=== PATIENT | female | born 1980 | race African-American/Black ===

== ENCOUNTER 2017-12-24 19:04 | Inpatient (IN) | payer MEDICARE, MEDICAID ==
[~2017-12-24] VITALS: Ht 172.7 cm; Wt 108.0 kg
[2017-12-24 19:51] LABS: Urine Bacteria FEW /hpf (None Seen); Urine Blood TRACE /uL (Negative); Urine Specific Gravity 1.012 (1.001-1.035); Urine WBC 3 /hpf (0 - 5)
[2017-12-24 20:07] LABS: Basophils # (auto) 0.1 uL; Basophils % (auto) 1.4 % (0.0-2.0); Eosinophils # (auto) 0.1 uL; Eosinophils % (auto) 1.4 % (0.0-7.0); Hematocrit 24.6 % (36.0-46.0); Hemoglobin 8.5 g/dL (12.2-16.2); Lymphocytes # (auto) 4.1 uL; Lymphocytes % (auto) 41.6 % (10.0-50.0); Mean Corpuscular Hemoglobin 30.7 pg (28.0-32.0); Mean Corpuscular Hgb Conc. 34.4 g/dL (32.0-36.0); Mean Corpuscular Volume 89.3 fL (80.0-100.0); Monocytes # (auto) 0.6 uL; Monocytes % (auto) 5.8 % (0.0-12.0); Neutrophils # (auto) 4.9 uL; Neutrophils % (auto) 49.8 % (37.0-80.0); Nucleated Red Blood Cells % 1.1 %; Platelet Count (auto) 285 10^3/uL (140-450); Red Blood Cells 2.75 10^6/uL (4.0-5.20); White Blood Cell 9.8 10^3/uL (4.4-10.8)
[2017-12-24 20:13] LABS: Red Cell Distribution Width 21.1 % (11.8-14.3)
[2017-12-24 20:17] LABS: BUN/Creatinine Ratio 13.7; Bilirubin, Total 3.4 mg/dL (0.2-1.0); Calcium 9.2 mg/dL (8.5-10.1); Total Protein 9.1 g/dL (6.4-8.2)
[2017-12-24] MEDS ORDERED: MORPHINE SULFATE 4 MG/ML SYR/VIAL IV ONE (23:30)
[2017-12-24] MEDS ORDERED: SODIUM CHLORIDE 0.9% 2,000 ML IV ONE (23:30)
[2017-12-24] MEDS ORDERED: ASPirin 81 mg TAB PO ONE (23:30)
[2017-12-24] MEDS ORDERED: IOHEXOL 350 MG/ML 100ML IJ ONE (23:42)
[2017-12-25] MEDS ORDERED: ACETAMINOPHEN 500 MG TAB PO PRN (05:30)
[2017-12-25] MEDS ORDERED: ONDANSETRON HCL 4 MG/2 ML VIAL IV PRN (05:30)
[2017-12-25] MEDS ORDERED: MORPHINE SULFATE 4 MG/ML SYR/VIAL IV PRN ×2 (05:30)
[2017-12-25] MEDS ORDERED: HYDROcodone-ACET 5/325MG TAB PO PRN (05:30)
[2017-12-25 06:18] LABS: Hematocrit 20.9 % (36.0-46.0); Hemoglobin 7.3 g/dL (12.2-16.2); Mean Corpuscular Hemoglobin 31.1 pg (28.0-32.0); White Blood Cell 9.5 10^3/uL (4.4-10.8)
[2017-12-25 06:20] LABS: Basophils # (auto) 0.1 uL; Basophils % (auto) 0.5 % (0.0-2.0); Eosinophils # (auto) 0.2 uL; Eosinophils % (auto) 2.1 % (0.0-7.0); Lymphocytes # (auto) 3.8 uL; Lymphocytes % (auto) 39.8 % (10.0-50.0); Mean Corpuscular Hgb Conc. 35.1 g/dL (32.0-36.0); Mean Corpuscular Volume 88.5 fL (80.0-100.0); Monocytes # (auto) 0.7 uL; Monocytes % (auto) 7.6 % (0.0-12.0); Neutrophils # (auto) 4.7 uL; Nucleated Red Blood Cells % 0.5 %; Platelet Count (auto) 269 10^3/uL (140-450); Red Blood Cells 2.36 10^6/uL (4.0-5.20)
[2017-12-25 06:21] LABS: Red Cell Distribution Width 21.6 % (11.8-14.3)
[2017-12-25] MEDS ORDERED: D5W/SOD CHLO 0.9% 1,000 ML IV SCH (06:30)
[2017-12-25 06:56] LABS: Anion Gap 7 (5-15); BUN/Creatinine Ratio 13.1; Blood Urea Nitrogen 8 mg/dL (7-18); Calcium 8.4 mg/dL (8.5-10.1); Carbon Dioxide 21 mmol/L (21-32); Chloride 113 mmol/L (98-107); GFR African American 141 mL/min; GFR Non-African American 117 mL/min; Glucose 81 mg/dL (74-106); Sodium 141 mmol/L (136-145)
[2017-12-25 08:02] VITALS: BP 116/72
[2017-12-25 10:00] VITALS: BP 116/72
[2017-12-25] MEDS ORDERED: FOLIC ACID 1 MG TAB PO SCH (10:00)
[2017-12-25] MEDS ORDERED: PANTOPRAZOLE 40 MG TAB PO SCH (10:00)
[2017-12-25 11:43] VITALS: BP 102/64
[2017-12-25 16:40] VITALS: BP 100/70
[2017-12-25 18:47] VITALS: BP 116/72
== END 2017-12-25 20:06 | disposition home or self-care (01) | DRG 190 ==
LOC: ER 19:04 → TELE 19:05 → TELE-WESTW 12-25 06:35
PROVIDERS: ADMIT Nurse Practitioner Family; ATTEND Family Medicine
DX: J47.0 Bronchiectasis with acute lower respiratory infection (principal); D57.00 Hb-SS disease with crisis, unspecified; J21.9 Acute bronchiolitis, unspecified; E86.0 Dehydration; R79.1 Abnormal coagulation profile; R91.1 Solitary pulmonary nodule
CPT/HCPCS: 36415; 71045; 71275; 80048; 80053; 81001; 81025; 83690; 84484; 84702; 85025; 85045; 85379; 93005; 96361; 96374; J7042

== ENCOUNTER 2018-12-07 11:49 | Emergency (ER) | payer MEDICARE, MEDICAID ==
[~2018-12-07] VITALS: Ht 170.2 cm; Wt 50.3 kg
[~2018-12-07 11:49] MED LIST: FERR-7 PO; FOLI1TAB6 PO
[2018-12-07 13:41] LABS: Urine Bacteria FEW /hpf (None Seen); Urine Blood 2+ /uL (Negative); Urine Mucus FEW (None Seen); Urine Specific Gravity 1.011 (1.001-1.035); Urine WBC 5 /hpf (0 - 5)
[2018-12-07 14:04] LABS: Basophils # (auto) 0.1 uL; Basophils % (auto) 1.1 % (0.0-2.0); Eosinophils # (auto) 0.2 uL; Eosinophils % (auto) 2.1 % (0.0-7.0); Hematocrit 26.8 % (36.0-46.0); Hemoglobin 9.1 g/dL (12.2-16.2); Lymphocytes # (auto) 2.2 uL; Lymphocytes % (auto) 27.4 % (10.0-50.0); Mean Corpuscular Hemoglobin 30.4 pg (28.0-32.0); Mean Corpuscular Volume 89.4 fL (80.0-100.0); Monocytes # (auto) 0.5 uL; Monocytes % (auto) 6.1 % (0.0-12.0); Neutrophils # (auto) 5.1 uL; Neutrophils % (auto) 63.3 % (37.0-80.0); Nucleated Red Blood Cells % 1.2 %; Platelet Count (auto) 321 10^3/uL (140-450); Red Blood Cells 2.99 10^6/uL (4.0-5.20); Red Cell Distribution Width 19.2 % (11.8-14.3)
[2018-12-07 14:22] LABS: Albumin 4.3 g/dL (3.4-5.0); Anion Gap 7 (5-15); Blood Urea Nitrogen 8 mg/dL (7-18); Calcium 8.5 mg/dL (8.5-10.1); Carbon Dioxide 23 mmol/L (21-32); Chloride 110 mmol/L (98-107); Glucose 76 mg/dL (74-106); Potassium 3.8 mmol/L (3.5-5.1); Sodium 140 mmol/L (136-145)
[2018-12-07 14:29] LABS: Alanine Aminotransferase 31 U/L (13-56); Alkaline Phosphatase 71 U/L (45-117); Aspartate Aminotransferase 32 U/L (15-37); BUN/Creatinine Ratio 12.3; Bilirubin, Total 2.8 mg/dL (0.2-1.0); GFR African American 131 mL/min; GFR Non-African American 108 mL/min; Total Protein 8.5 g/dL (6.4-8.2)
[2018-12-07] MEDS ORDERED: SODIUM CHLORIDE 0.9% 1,000 ML IVB ONE (17:13)
[2018-12-07] MEDS ORDERED: MORPHINE SULFATE 4 MG/ML SYR/VIAL IV ONE (19:30)
[2018-12-07] MEDS ORDERED: ONDANSETRON HCL 4 MG/2 ML VIAL IV ONE (19:30)
[2018-12-07] MEDS ORDERED: SODIUM CHLORIDE 0.9% 1,000 ML IV ONE (19:30)
[2018-12-07] MEDS ORDERED: diphenhdrAMINE HCL 25 MG CAP PO ONE (22:00)
[2018-12-07 22:49] VITALS: BP 115/58
== END 2018-12-08 | disposition home or self-care (01) ==
LOC: ER 11:49
DX: D57.00 Hb-SS disease with crisis, unspecified (principal); R07.89 Other chest pain; Z90.49 Acquired absence of other specified parts of digestive tract; Z98.51 Tubal ligation status
CPT/HCPCS: 36415; 71045; 80053; 81001; 81025; 82962; 84484; 85025; 93005; 94761; 96374; 96375; 99284; J2270; J2405; J7030

== ENCOUNTER 2018-12-20 13:09 | Inpatient (IN) | payer MEDICARE, MEDICAID | END 2018-12-21 14:26 | disposition home or self-care (01) | LOC: ER 13:09 → TELE 18:50 → TELE-CENTR 19:53 ==

== ENCOUNTER 2025-01-07 11:30 | Emergency (ER) | payer OTHER, MEDICAID ==
[~2025-01-07] VITALS: Ht 172.7 cm; Wt 52.1 kg
[~2025-01-07 11:30] MED LIST changes: +FOLI-119 PO; -FOLI1TAB6 PO
--- NOTE | 2025-01-07 11:59 | ED.PDOC ---
History of Present Illness HPI Comments 44y F who presents to the ED for chief complaint of abnormal labs. Pt states she had labs drawn Dec 07, 2024 and states she received call from PCP telling her to come to the local ED for further evaluation. Pt states she was told she has low hemoglobin, low A1c and low vit D. Pt denies any associated heavy bleeding and states she has not had period in 2 years and had hysterectomy done. Pt otherwise denies weakness, maliase or any associated weakness. Pt otherwise denies chest pain, shortness of breath, headache or dizziness. Pt denies any other symptoms at this time. Chief Complaint: Abnormal LAB's Time Seen by MD: 11:57 Primary Care Provider: OLY Reviewed Notes: Nurses Notes, Medications, Allergies Allergies: Coded Allergies: No Known Drug Allergy (Verified Allergy, Unknown, 12/24/17) Home Meds Reported Medications Ferrous Sulfate (Iron) 325 Mg Tab, 325 MG PO, TAB 10/30/18 Folic Acid (Folic Acid) 1 Mg Tab, 1 MG PO DAILY for 30 Days, MG 10/30/18 Information Source: Patient, Friend Mode of Arrival: Ambulatory Severity: Moderate Timing: Days Duration: Since onset Prehospital treatment: None Medication Refill: For: Other (abnormal labs) Past Medical History PAST MEDICAL HISTORY: Anemia, Anxiety, High Lipids Surgical History: Cholecystectomy, , 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: Endometriosis Family History Family History: Unknown Social History Smoker: Non-Smoker Alcohol: Denies ETOH Use Drugs: Marijuana Lives In: Home Constitutional: denies: chills, diaphoresis, fatigue, fever, malaise, sweats, weakness, others EENTM: denies: blurred vision, double vision, ear bleeding, ear discharge, ear drainage, ear pain, ear ringing, eye pain, eye redness, hearing loss, mouth pain, mouth swelling, nasal discharge, nose bleeding, nose congestion, nose pain, photophobia, tearing, throat pain, throat swelling, voice changes, others Respiratory: denies: cough, hemoptysis, orthopnea, SOB at rest, shortness of breath, SOB with excertion, stridor, wheezing, others Cardiovascular: denies: chest pain, dizzy spells, diaphoresis, Dyspnea on exertion, edema, irregular heart beat, left arm pain, lightheadedness, palpitations, PND, syncope, others Gastrointestinal: denies: abdomen distended, abdominal pain, blood streaked bowels, constipated, diarrhea, dysphagia, difficulty swallowing, hematemesis, melena, nausea, poor appetite, poor fluid intake, rectal bleeding, rectal pain, vomiting, others Genitourinary: denies: abnormal vagina bleeding, burning, dyspareunia, dysuria, flank pain, frequency, hematuria, incontinence, pain, , vagina discharge, urgency, others Neurological: denies: dizziness, fainting, headache, left sided numbness, left sided weakness, numbness, paresthesia, pre-existing deficit, right sided numbness, right sided weakness, seizure, speech problems, tingling, tremors, weakness, others Musculoskeletal: denies: back pain, gout, joint pain, joint swelling, muscle pain, muscle stiffness, neck pain, others Integumetry: denies: bruises, change in color, change in hair/nails, dryness, laceration, lesions, lumps, rash, wounds, others Allergic/Immunocompromised: denies: Difficulty Healing, Frequent Infections, Hives, Itching, others Hematologic/Lymphatic: denies: anemia, blood clots, easy bleeding, easy bruising, swollen glands, others Endocrine: denies: excessive hunger, excessive sweating, excessive thirst, excessive urination, flushing, intolerance to cold, intolerance to heat, unexplained weight gain, unexplained weight loss, others Psychiatric: denies: anxiety, bipolar disorder, depression, hopeless, panic disorder, schizophrenia, sleepless, suicidal, others All Other Systems: Reviewed and Negative Physical Exam General Appearance: No Apparent Distress HEENT: Normal ENT Inspection, Pharynx Normal, TMs Normal Neck: Full Range of Motion, Non-Tender, Normal, Normal Inspection Respiratory: Chest Non-Tender, Lungs Clear, No Accessory Muscle Use, No Respiratory Distress, Normal Breath Sounds Cardiovascular: No Edema, No JVD, No Murmur, No Gallop, Normal Peripheral Pulses, Regular Rate/Rhythm Breast Exam: Deferred Gastrointestinal: No Organomegaly, Non Tender, No Pulsatile Mass, Normal Bowel Sounds, Soft Genitalia: Deferred Pelvic: Deferred Rectal: Deferred Extremities: No calf tenderness, Normal capillary refill, Normal inspection, Normal range of motion, Non-tender, No pedal edema Musculoskeletal : Apperance: Normal Neurologic: Alert, 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 Was a procedure done?: No Differential Dx Considerations may include: severe anemia, generalized weakness, X-Ray, Labs, Meds, VS Vital Signs Date Time Temp Pulse Resp B/P (MAP) Pulse Ox O2 Delivery O2 Flow Rate FiO2 01/07/25 11:40 98.4 88 16 129/65 (86) 98 Lab Test 01/07/25 12:00 01/07/25 11:39 Range/Units White Blood Count 8.8 4.4-10.8 10^3/uL Red Blood Count 2.53 L 4.0-5.20 10^6/uL Hemoglobin 7.6 L 12.2-16.2 g/dL Hematocrit 21.8 L 36.0-46.0 % Mean Corpuscular Volume 86.2 80.0-100.0 fL Mean Corpuscular Hemoglobin 30.0 28.0-32.0 pg Mean Corpuscular Hemoglobin Concent 34.8 32.0-36.0 g/dL Red Cell Distribution Width 22.2 H 11.8-14.3 % Platelet Count 361 140-450 10^3/uL Mean Platelet Volume 7.3 6.9-10.8 fL Neutrophils (%) (Auto) 37.0-80.0 % Lymphocytes (%) (Auto) 10.0-50.0 % Monocytes (%) (Auto) 0.0-12.0 % Basophils (%) (Auto) 0.0-2.0 % Neutrophils # (Auto) 1.6-8.6 10 ^3/uL Lymphocytes # (Auto) 0.4-5.4 10 ^3/uL Monocytes # (Auto) 0-1.3 10 ^3/uL Differential Total Cells Counted 100.0 100 Neutrophils % (Manual) 36 L 37.0-80.0 Band Neutrophils % (Manual) 0 Lymphocytes % (Manual) 58 H 10.0-50.0 Monocytes % (Manual) 4 0-12 Eosinophils % (Manual) 2 0-7 Basophils % (Manual) 0 0.0-2.0 Metamyelocytes % (manual) 0 Myelocytes % (Manual) 0 Promyelocytes % (Manual) 0 Blast Cells % (Manual) 0 Nucleated Red Blood Cells 1.0 % Reactive Lymphocytes 0 Platelet Estimate Adequate Anisocytosis (manual) Slight Microcytosis Slight Sickle Cells Moderate Target Cells Few Urine Color Yellow Yellow Urine Clarity Clear Clear Urine pH 7.0 5.0-9.0 Urine Specific [place] 1.011 1.001-1.035 Urine Protein Negative Negative Urine Ketones Negative Negative Urine Blood Negative Negative /uL Urine Nitrite Negative Negative Urine Bilirubin Negative Negative Urine Urobilinogen 3 H Negative mg/dL Urine Leukocyte Esterase Negative Negative /uL Urine RBC <1 0 - 4 /hpf Urine Microscopic WBC < 1 0-5 /HPF Urine Squamous Epithelial Cells Few <5 /hpf Urine Bacteria None seen None Seen /hpf Urine Glucose Normal Normal mg/dL The urine test is negative The CBC shows anemia with a hemoglobin of 7.6 and hematocrit of 21.8 The platelets are within normal limits At this time, the patient was being discharged The patient will return to the emergency department's condition worsens The patient was told to continue her iron pills The patient will follow up with the primary care doctor The patient was asymptomatic at this time. Time of 1ST Reevaluation: 12:30 Reevaluation 1ST: Unchanged Patient Education/Counseling: Diagnosis, Treatment, Prognosis, Need For Follow Up Family Education/Counseling: Diagnosis, Treatment, Prognosis, Need For Follow Up Additional Information -Reviewed patient's previous visit(s): - The following tests were ordered, and results were reviewed by me: cbc, ua - Additional information was gathered from interviewing the following independen t Historian: pt friend - I reviewed and agreed with the following test results read by other provider: none - I discussed treatments and results with medical personnel and: patient and pt friend Comprehensive systems review obtained and negative except for what is stated in the HPI. Departure 1 Departure Time of Disposition: 14:39 Impression: Primary Impression: Anemia Qualified Codes: D50.9 - Iron deficiency anemia, unspecified Disposition: 01 HOME / SELF CARE / HOMELESS Condition: Fair Discharged With: Self Critical Care Note Critical Care Time?: No Stability Stability form required: No Heart Score Heart Score: Heart Score Response (Comments) Value History N/A 0 EKG N/A 0 Age N/A 0 Risk Factors N/A 0 Troponin N/A 0 Total 0 I personally scribed for CANDIDA THORNTON MD ([email or web address]) on 2/26/25 at 11:59. Electronically submitted by Barbara Reed ([email or web address]). CANDIDA THORNTON MD Jan 07, 2025 11:59
[2025-01-07 12:08] LABS: Urine Bacteria None Seen /hpf (None Seen)
[2025-01-07 12:27] LABS: Hematocrit 21.8 % (36.0-46.0); Hemoglobin 7.6 g/dL (12.2-16.2); Mean Corpuscular Hgb Conc. 34.8 g/dL (32.0-36.0); Mean Corpuscular Volume 86.2 fL (80.0-100.0); Platelet Count (auto) 361 10^3/uL (140-450); Red Blood Cells 2.53 10^6/uL (4.0-5.20); White Blood Cell 8.8 10^3/uL (4.4-10.8)
[2025-01-07 12:33] LABS: Urine Blood Negative /uL (Negative); Urine Clarity Clear (Clear); Urine Color Yellow (Yellow); Urine Protein, UAD Negative (Negative); Urine Specific Gravity 1.011 (1.001-1.035); Urine Squamous Epithelial Cell FEW /hpf (<5); Urine Urobilinogen 3 mg/dL (Negative); Urine WBC < 1 /HPF (0-5)
[2025-01-07 12:48] LABS: Red Cell Distribution Width 22.2 % (11.8-14.3)
[2025-01-07 12:50] LABS: Band Neutrophils % (manual) 0; Basophils % (manual) 0 (0.0-2.0); Blast Cells 0; Metamyelocytes % 0; Myelocytes % 0; Promyelocytes % 0; Reactive Lymphocytes 0
[2025-01-07 13:58] LABS: Anisocytosis Slight
[2025-01-07 13:59] LABS: Platelet Estimate Adequate; Sickle Cells MODERATE; Target Cell FEW
[2025-01-07 14:01] LABS: Eosinophils % (manual) 2 (0-7); Lymphocytes % (manual) 58 (10.0-50.0); Monocytes % (manual) 4 (0-12)
[2025-01-07 15:38] VITALS: BP 117/65; PULSE 92; RESP 18; TEMP 98.1; O2SAT 96
== END 2025-01-07 15:44 | disposition home or self-care (01) ==
LOC: ER 11:33
DX: D64.9 Anemia, unspecified (principal); F41.9 Anxiety disorder, unspecified; E78.5 Hyperlipidemia, unspecified; Z90.49 Acquired absence of other specified parts of digestive tract; Z98.51 Tubal ligation status; Z98.890 Other specified postprocedural states
CPT/HCPCS: 36415; 81001; 85007; 85027